=== PATIENT | female | born 1985 | race Caucasian/White ===

== ENCOUNTER 2018-03-04 18:02 | Emergency (ER) | payer MEDICAID ==
[2018-03-04] MEDS: ACETAMINOPHEN 325 MG TAB PO (19:11)
[2018-03-04 19:28] LABS: ADD MAN DIFF? NO
[2018-03-04 19:29] LABS: WHITE BLOOD COUNT 10.5 10^3/ul (4.8-10.8)
[2018-03-04 19:29] LABS: BASOPHILS % 0.3 % (0.0-2.0); EOSINOPHILS # 0.1 10^3/ul (0.0-0.5); EOSINOPHILS % 1.3 % (0.0-7.0); HEMATOCRIT 33.4 % (37.0-47.0); LYMPHOCYTES # 1.6 10^3/ul (0.8-2.9); LYMPHOCYTES % 15.5 % (15.0-51.0); MEAN CORPUSCULAR HEMOGLOBIN 32.4 pg (29.0-33.0); MEAN CORPUSCULAR HGB CONC 32.9 g/dl (32.0-37.0); MEAN CORPUSCULAR VOLUME 98.2 fl (82.0-101.0); MEAN PLATELET VOLUME 9.7 fl (7.4-10.4); MONOCYTE # 0.8 10^3/ul (0.3-0.9); MONOCYTES % 7.5 % (0.0-11.0); NEUTROPHIL # 7.9 10^3/ul (1.6-7.5); NEUTROPHILS % 74.9 % (39.0-77.0); PLATELET COUNT 288 10^3/UL (140-415); RED CELL DISTRIBUTION WIDTH 11.8 % (11.5-14.5)
[2018-03-04 19:44] LABS: HEMOGLOBIN A1C 5.1 % (0-5.9)
[2018-03-04 19:46] LABS: ADD UMIC NO; ALANINE AMINOTRANSFERASE 18 IU/L (13-69); ALBUMIN 3.5 g/dl (3.3-4.9); ALBUMIN/GLOBULIN RATIO 0.85; ALKALINE PHOSPHATASE 93 IU/L (42-121); ANION GAP 12 (8-16); ASPARTATE AMINO TRANSFERASE 17 IU/L (15-46); BILIRUBIN,INDIRECT 0.2 mg/dl (0-1.1); BILIRUBIN,TOTAL 0.2 mg/dl (0.2-1.3); BLOOD UREA NITROGEN 10 mg/dl (7-20); CALCIUM 9.4 mg/dl (8.4-10.2); CARBON DIOXIDE 27 mmol/L (21-31); CHLORIDE 102 mmol/L (97-110); CREATININE 0.52 mg/dl (0.44-1.00); GLUCOSE 88 mg/dl (70-220); POTASSIUM 4.3 mmol/L (3.5-5.1); SODIUM 137 mmol/L (135-144); TOTAL PROTEIN 7.6 g/dl (6.1-8.1); UR ASCORBIC ACID NEGATIVE (NEGATIVE); UR BACTERIA FEW /HPF (NONE SEEN); UR BILIRUBIN (Dip) NEGATIVE (NEGATIVE); UR BLOOD (Dip) NEGATIVE (NEGATIVE); UR CLARITY SLIGHTLY CLOUDY (CLEAR); UR COLOR YELLOW (YELLOW); UR GLUCOSE (Dip) NEGATIVE (NEGATIVE); UR KETONES (Dip) NEGATIVE (NEGATIVE); UR LEUKOCYTE ESTERASE (Dip) NEGATIVE Leu/ul (NEGATIVE); UR NITRITE (Dip) NEGATIVE (NEGATIVE); UR RBC 0 /HPF (0-5); UR SPECIFIC GRAVITY (Dip) 1.019 (1.003-1.030); UR SQUAMOUS EPITHELIAL CELL FEW /HPF (FEW); UR TOTAL PROTEIN (Dip) NEGATIVE (NEGATIVE); UR UROBILINOGEN (Dip) 1+ mg/dL (NEGATIVE); UR WBC 1 /HPF (0-5)
== END 2018-03-04 20:52 | disposition home or self-care (01) ==
LOC: FTE 18:02
DX: O99.89 Other specified diseases and conditions complicating pregnancy, childbirth and the puerperium (principal); R68.84 Jaw pain; Z3A.29 29 weeks gestation of pregnancy
CPT/HCPCS: 80053; 81001; 81003; 83036; 85025; 99283

== ENCOUNTER 2018-05-11 13:49 | Inpatient (IN) | payer MEDICAID ==
[2018-05-11] MEDS ORDERED: BUTORPHANOL 2 MG INJ (15:03)
[2018-05-11] MEDS ORDERED: CARBOPROST 250 MCG INJ IM (15:30)
[2018-05-11] MEDS ORDERED: METHYLERGONOVINE 0.2 MG INJ IM (15:30)
[2018-05-11] MEDS ORDERED: OXYTOCIN 30 UNITS/LR 500 ML IV ×3 (15:30)
[2018-05-11] MEDS ORDERED: MISOPROSTOL 200 MCG TAB PR (15:30)
[2018-05-11] MEDS ORDERED: LIDOCAINE 1% (MPF) 30 ML INJ INJ (15:30)
[2018-05-11] MEDS ORDERED: IBUPROFEN 600 MG TAB PO (15:30)
[2018-05-11 15:46] LABS: ADD MAN DIFF? NO
[2018-05-11 15:53] LABS: BASOPHILS % 0.3 % (0.0-2.0); EOSINOPHILS # 0.1 10^3/ul (0.0-0.5); EOSINOPHILS % 0.6 % (0.0-7.0); HEMATOCRIT 34.2 % (37.0-47.0); HEMOGLOBIN 10.9 g/dl (12.0-16.0); LYMPHOCYTES # 1.4 10^3/ul (0.8-2.9); LYMPHOCYTES % 13.1 % (15.0-51.0); MEAN CORPUSCULAR HEMOGLOBIN 30.7 pg (29.0-33.0); MEAN CORPUSCULAR HGB CONC 31.9 g/dl (32.0-37.0); MEAN CORPUSCULAR VOLUME 96.3 fl (82.0-101.0); MEAN PLATELET VOLUME 10.2 fl (7.4-10.4); MONOCYTE # 0.9 10^3/ul (0.3-0.9); MONOCYTES % 8.2 % (0.0-11.0); NEUTROPHIL # 8.5 10^3/ul (1.6-7.5); NEUTROPHILS % 77.3 % (39.0-77.0); PLATELET COUNT 263 10^3/UL (140-415); RED BLOOD COUNT 3.55 10^6/ul (4.20-5.40)
[2018-05-11 16:07] LABS: INR 0.96; PROTIME 12.9 Sec (11.9-14.9)
[2018-05-11 16:08] LABS: PARTIAL THROMBOPLASTIN TIME 28.1 Sec (23.0-35.0)
[2018-05-11] MEDS: LACTATED RINGER'S 1,000 ML IV ×2 (16:18→16:29)
[2018-05-11] MEDS: BUTORPHANOL 2 MG INJ IV ×2 (16:18→18:33)
[2018-05-11] MEDS: AMPICILLIN 2 GM/NS (PMX) 100 ML IV (16:30)
[2018-05-11 16:40] LABS: HEPATITIS B SURFACE ANTIGEN NEGATIVE (NEGATIVE)
[2018-05-11] MEDS: AMPICILLIN 1 GM/NS (PMX) 50 ML IV (19:48)
[2018-05-11] MEDS: OXYCODONE/ACETAMINOPHEN (5/325) TAB PO (20:39)
[2018-05-11 22:28] LABS: RAPID PLASMA REAGIN NONREACTIVE (NR)
[2018-05-13 11:01] LABS: RUBELLA ANTIBODY - IGG 5.68 index
== END 2018-05-11 20:42 | disposition home or self-care (01) | DRG 833 ==
LOC: OBT 13:49 → L-D 13:49 → OBT 14:53 → L-D 14:40
PROVIDERS: Obstetrics & Gynecology Gynecology
DX: O47.1 False labor at or after 37 completed weeks of gestation (principal); Z3A.40 40 weeks gestation of pregnancy; O09.513 Supervision of elderly primigravida, third trimester
CPT/HCPCS: 76815; 76818; 85025; 85610; 85730; 86592; 86762; 86850; 86900; 86901; 87340